=== PATIENT | female | born 1940 | race Two or more races ===

== ENCOUNTER 2017-02-09 07:39 | Inpatient (IN) | payer OTHER, MEDICARE ==
[~2017-02-09] VITALS: Ht 160 cm; Wt 60.0 kg
[~2017-02-09 07:39] MED LIST: AMLODIPINE BESY10 MG PO; CATAPRES0.3 MG PO; CIPRO500 MG PO; CLONIDINE HCL0.1 MG PO; CYCLOBENZAPRINE10 MG PO; Colace PO; Dulcolax PO; Ecotrin PO; GABAPENTIN300 MG PO; Glucophage PO; LIDODERM 5% P1 PATCH TD; LIPITOR80 MG PO; LISINOPRIL20 MG PO; MARTINIC1 EACH PO; METFORMIN HCL500 MG PO; METOPROLOL TAR100 MG PO; NAPROXEN500 MG PO; NORVASC5 MG PO; Niacin PO; Oyst-Cal D, Oscal W/ PO; PEN-VEE K,VEET500 MG PO; PERCOCET 7.5-31 EACH PO; SUPER B COM1 CAPSULE PO; Skelaxin PO; THERAGRAN1 TABLET PO; TOPROL XL25 MG PO; TRAMADOL HCL50 MG PO; Tylenol Regular Stre PO; Tylenol/Codeine #3 PO; VITAMIN E; VITAMIN E1000 UNI1 PO; Vitamin B Complex PO; Vitamin D, Drisdol PO; XALATAN2.5 ML BOTH EYES; Xalatan 0.005% Ophth BOTH EYES; ZESTORETIC 20-1 EAC1 PO; Zocor PO
[2017-02-09 08:02] LABS: BASOPHIL COUNT 0.1 K/uL (0-0.1); EOSINOPHIL (%) 0.7 % (0-5); EOSINOPHIL COUNT 0.1 K/uL (0-0.3); HEMATOCRIT 32.6 % (36.0-46.0); IMMATURE GRANULOCYTE (%) 0.5 % (0.0-0.7); IMMATURE GRANULOCYTE COUNT 0.1 K/uL; LYMPHOCYTE COUNT 1.9 K/uL (1.0-2.8); MCH 26.8 PG (29.0-34.0); MCHC 30.1 G/DL (30.0-36.0); MCV 89.1 FL (83-99); MEAN PLAT.VOLUME 10.8 uM^3 (9.5-12.4); MONOCYTE (%) 5.7 % (3-12); MONOCYTE COUNT 0.6 K/uL (0-0.8); NEUTROPHIL (%) 74.5 % (45-76); PLATELET COUNT 518 K/uL (156-360); RBC DIS.WIDTH-CV 14.6 % (11.8-14.6); RBC DIS.WIDTH-SD 47.2 % (39-53); RED BLOOD COUNT 3.66 M/uL (3.80-5.20); WHITE BLOOD COUNT 10.7 K/uL (4.1-10.2)
[2017-02-09 08:13] LABS: INTER. NORMALIZED RATIO 1.2; PROTHROMBIN TIME 12.1 (9.2-11.2); PTT 27.3 (25-32)
[2017-02-09 08:24] LABS: AMYLASE 47 IU/L (1-118); CHLORIDE 111 mEq/L (99-109); POTASSIUM 5.4 mEq/L (3.7-5.4); SODIUM 139 mEq/L (136-147)
[2017-02-09 08:26] LABS: GLUCOSE 235 mg/dL (70-99); TROP-I INTERPRETATION POSITIVE; TROPONIN-I 8.75 ng/mL (0.0-0.30)
[2017-02-09 08:27] LABS: ANION GAP 16 MEQ/L (2-14)
[2017-02-09 08:29] LABS: SERUM ETHYL ALCOHOL < 10 mg/dL
[2017-02-09 08:30] LABS: GFR ESTIMATE (CALCULATED) 46 mL/min/
[2017-02-09 08:31] LABS: UREA NITROGEN (BUN) 37 mg/dL (9-23)
[2017-02-09 08:33] LABS: LIPASE 39 U/L (1.0-51.0)
[2017-02-09 11:07] VITALS: BP 153/100
[2017-02-09 11:54] LABS: BICARBONATE 8.7 mEq/L (22-26); CARBOXY HGB 1.2 % (0-5); METHEMOGLOBIN 1.3 % (0-1.5); PCO2 30 mm Hg (35-45)
[2017-02-09 12:32] LABS: DEVICE 980; FI02 100 %; MECHANICAL RATE 18 resp/min; MODE AC; SITE ALINE; TOTAL RESP RATE 25 resp/min; pH 7.07 (7.35-7.45)
[2017-02-09 12:33] LABS: PEEP 8 CM/H20; TIDAL VOLUME 400 ML
[2017-02-09 12:34] LABS: COMMENTS - BLOOD GASES A+
== END 2017-02-09 15:30 | DRG 270 ==
LOC: EME → EDBD 07:39 → EME 08:28 → CATH 08:28 → 4WEST 11:06
PROVIDERS: Emergency Medicine; Internal Medicine Interventional Cardiology
PROC: B2151ZZ Fluoroscopy of Left Heart using Low Osmolar Contrast (ICD-10-PCS; principal; 2017-02-09)
PROC: 5A1935Z Respiratory Ventilation, Less than 24 Consecutive Hours (ICD-10-PCS; principal; 2017-02-09)
PROC: 0BH17EZ Insertion of Endotracheal Airway into Trachea, Via Natural or Artificial Opening (ICD-10-PCS; principal; 2017-02-09)
PROC: 4A133B1 Monitoring of Arterial Pressure, Peripheral, Percutaneous Approach (ICD-10-PCS; principal; 2017-02-09)
PROC: B2111ZZ Fluoroscopy of Multiple Coronary Arteries using Low Osmolar Contrast (ICD-10-PCS; principal; 2017-02-09)
PROC: 4A023N7 Measurement of Cardiac Sampling and Pressure, Left Heart, Percutaneous Approach (ICD-10-PCS; principal; 2017-02-09)
PROC: 02C13ZZ Extirpation of Matter from Coronary Artery, Two Arteries, Percutaneous Approach (ICD-10-PCS; principal; 2017-02-09)
PROC: 5A12012 Performance of Cardiac Output, Single, Manual (ICD-10-PCS; principal; 2017-02-09)
PROC: 05HM33Z Insertion of Infusion Device into Right Internal Jugular Vein, Percutaneous Approach (ICD-10-PCS; principal; 2017-02-09)
PROC: 5A02210 Assistance with Cardiac Output using Balloon Pump, Continuous (ICD-10-PCS; principal; 2017-02-09)
PROC: 03HY32Z Insertion of Monitoring Device into Upper Artery, Percutaneous Approach (ICD-10-PCS; principal; 2017-02-09)
PROC: 027135Z Dilation of Coronary Artery, Two Arteries with Two Drug-eluting Intraluminal Devices, Percutaneous Approach (ICD-10-PCS; principal; 2017-02-09)
DX: I21.02 ST elevation (STEMI) myocardial infarction involving left anterior descending coronary artery (principal); I46.2 Cardiac arrest due to underlying cardiac condition; J96.01 Acute respiratory failure with hypoxia; J81.0 Acute pulmonary edema; I25.10 Atherosclerotic heart disease of native coronary artery without angina pectoris; I34.0 Nonrheumatic mitral (valve) insufficiency; I10 Essential (primary) hypertension; E78.5 Hyperlipidemia, unspecified; I25.5 Ischemic cardiomyopathy; E11.65 Type 2 diabetes mellitus with hyperglycemia; Z79.84 Long term (current) use of oral hypoglycemic drugs
CPT/HCPCS: 36600; 71010; 80048; 81003; 82150; 82550 91; 82553; 82803; 83690; 84484; 85025; 85347; 85610; 85730; 86900; 86901; 87641; 92950; 93005; 94002; 99281; 99285; C1725; C1757; C1769; C1874; C1887; G0480; J0153; J0282; J0330; J0461; J1265; J1644; J2250; J2405; J2704; J3010; J3246; J7050